=== PATIENT | male | born 1975 | race Caucasian/White ===

== ENCOUNTER 2017-01-18 17:32 | Emergency (ER) | payer MEDICAID, OTHER ==
[~2017-01-18] VITALS: Ht 167.6 cm; Wt 85.7 kg
[~2017-01-18 17:32] MED LIST: CEPH250C16 PO; TAMS0.4C96 PO
[2017-01-18 17:42] VITALS: BP 136/82
[2017-01-18] MEDS ORDERED: NACL 0.9% 500 ML IV ONE (19:19)
[2017-01-18] MEDS ORDERED: ONDANSETRON 4 MG/2 ML VIAL IVP ONE (19:20)
[2017-01-18] MEDS ORDERED: KETOROLAC 30 MG/ML VIAL IVP ONE (19:20)
[2017-01-18 21:07] LABS: BASOPHILS # (AUTO) 0.4 K/uL (0.00-0.22); BASOPHILS % (AUTO) 4.7 % (0.0-2.0); EOSINOPHILS # (AUTO) 0.3 K/uL (0-0.4); HEMATOCRIT 52.2 % (36-52); HEMOGLOBIN 16.9 g/dL (12.0-18.0); LYMPHOCYTES # (AUTO) 2.7 K/uL (2.0-11.5); LYMPHOCYTES % (AUTO) 32.7 % (20.5-51.1); MEAN CORPUSCULAR HEMOGLOBIN 30 pg (27-31); MEAN CORPUSCULAR HGB CONC 32 g/dL (33-37); MEAN CORPUSCULAR VOLUME 93 fL (80-94); MONOCYTES % (AUTO) 12.6 % (1.7-9.3); NEUTROPHILS # (AUTO) 3.8 K/uL (1.8-7.7); PLATELET COUNT (AUTO) 357 K/uL (140-450); RED BLOOD CELL COUNT(AUTO) 5.61 MIL/uL (4.20-6.10); RED CELL DISTRIBUTION WIDTH 13.5 % (11.6-13.7); WHITE BLOOD COUNT (AUTO) 8.2 K/uL (4.8-10.8)
[2017-01-18 21:22] LABS: ALBUMIN 3.8 g/dL (3.4-5.0); CARBON DIOXIDE 24.8 mmol/L (21-32); POTASSIUM 3.8 mmol/L (3.5-5.1); TOTAL BILIRUBIN 0.5 mg/dL (0.0-1.0)
[2017-01-18 22:13] VITALS: BP 125/81
== END 2017-01-18 22:13 | disposition home or self-care (01) ==
LOC: MED 17:32
DX: K76.0 Fatty (change of) liver, not elsewhere classified (principal); R03.0 Elevated blood-pressure reading, without diagnosis of hypertension; E78.00 Pure hypercholesterolemia, unspecified
CPT/HCPCS: 36415; 71010; 76705; 80053; 83690; 85025; 96361; 96374; 96375; 99285; J1885; J2405; J7030; Q0092

== ENCOUNTER 2018-09-22 06:28 | Emergency (ER) | payer OTHER ==
[~2018-09-22] VITALS: Ht 165.1 cm; Wt 95.3 kg
[2018-09-22 06:34] VITALS: BP 141/78
--- NOTE | 2018-09-22 06:34 | NUR ---
PT TAKEN TO BED 8
--- NOTE | 2018-09-22 06:35 | NUR ---
PT BIB SELF C/O BLOOD IN STOOL AND RIGHT FLANK PAIN. PT STATES BM X1 HOUR AGO W/ PRESENTS OF BLOOD IN TOILET AND W/ WIPING; RIGHT SIDED FLANK PAIN TENDER TO TOUCH W/ NO SIGNS OF TRAUMA OR INJURY; NO ACTIVE BLEEDING FROM RECTUM AT THIS TIME; PT STATES 3/10 ABD PAIN. DENIES N/V/D. BREATHING EQUAL AND UNLABORED. PT ACTING APPROPRIATLY SPEAKING IN CLEAR AND COMPLETE SENTENCES. PT IN GOWN, IN BED; BED IN LOWER LOCKED POSITION. PENDING ERMD TROYAL. PMH: DENIES URINE SAMPLE AT BEDSIDE.
--- NOTE | 2018-09-22 07:15 | NUR ---
Dr. Limon evaluating patient at bedside.
--- NOTE | 2018-09-22 07:21 | NUR ---
Bedside report provided to BERNADETTE Plummer. Transfer of care at this time.
[2018-09-22] MEDS ORDERED: KETOROLAC 15 MG/ML VIAL IVP ONE (07:25)
[2018-09-22 08:03] LABS: EOSINOPHILS # (AUTO) 0.2 K/uL (0-0.4); MONOCYTES # (AUTO) 0.6 K/uL (0.8-1.0); NEUTROPHILS # (AUTO) 4.1 K/uL (1.8-7.7); RED BLOOD CELL COUNT(AUTO) 5.41 MIL/uL (4.20-6.10)
[2018-09-22 08:11] LABS: BASOPHILS % (AUTO) 0.5 % (0.0-2.0); EOSINOPHILS % (AUTO) 2.3 % (0.0-4.0); HEMATOCRIT 49.9 % (36-52); HEMOGLOBIN 17.1 g/dL (12.0-18.0); LYMPHOCYTES % (AUTO) 29.1 % (20.5-51.1); MEAN CORPUSCULAR HEMOGLOBIN 32 pg (27-31); MEAN CORPUSCULAR HGB CONC 34 g/dL (33-37); MEAN CORPUSCULAR VOLUME 92.1 fL (80-94); MONOCYTES % (AUTO) 9.2 % (1.7-9.3); NEUTROPHILS % (AUTO) 58.9 % (42.2-75.2); PLATELET COUNT (AUTO) 352 K/uL (140-450); RED CELL DISTRIBUTION WIDTH 14.2 % (11.6-13.7); WHITE BLOOD COUNT (AUTO) 6.9 K/uL (4.8-10.8)
[2018-09-22 08:16] LABS: APPEARANCE,URINE CLEAR (CLEAR); BILIRUBIN,URINE NEGATIVE (NEGATIVE); BLOOD, URINE NEGATIVE (NEGATIVE); COLOR,URINE YELLOW (YELLOW); LEUKOCYTE ESTERASE ,URINE NEGATIVE (NEGATIVE); NITRITE, URINE NEGATIVE (NEGATIVE); UGLUCOSE NEGATIVE (NEGATIVE)
[2018-09-22 08:20] LABS: ALBUMIN 3.8 g/dL (3.4-5.0); ANION GAP 10.7 (8-16); CARBON DIOXIDE 26.4 mmol/L (21-32); CREATININE 0.8 mg/dL (0.7-1.3); POTASSIUM 4.1 mmol/L (3.5-5.1); TOTAL BILIRUBIN 0.4 mg/dL (0.0-1.0)
--- NOTE | 2018-09-22 08:43 | NUR ---
PATIENT TAKEN FOR CT SCAN VIA WHEELCHAIR AT THIS TIME.
--- NOTE | 2018-09-22 09:20 | NUR ---
Patient being evaluated by DR ORELLANA at bedside.
[2018-09-22 10:00] VITALS: BP 134/79
--- NOTE | 2018-09-22 10:00 | NUR ---
Patient discharged with v/s stable. Written and verbal after care instructions given and explained. Patient alert, oriented and verbalized understanding of instructions. Ambulatory with steady gait. All questions addressed prior to discharge. ID band removed. Patient advised to follow up with PMD. Rx of NORCO &ZOFRAN given. Patient educated on indication of medication including possible reaction and side effects. Opportunity to ask questions provided and answered.
== END 2018-09-22 10:00 | disposition home or self-care (01) ==
LOC: MED 06:28
DX: R10.11 Right upper quadrant pain (principal); K92.1 Melena; Z79.2 Long term (current) use of antibiotics; Z79.899 Other long term (current) drug therapy
CPT/HCPCS: 36415; 74177; 80053; 81003; 83690; 85025; 96374; 99284; J1885; Q9967

== ENCOUNTER 2019-03-15 16:09 | Emergency (ER) | payer OTHER ==
[~2019-03-15] VITALS: Ht 167.6 cm; Wt 95.3 kg
[2019-03-15 16:24] VITALS: BP 134/81
--- NOTE | 2019-03-15 19:50 | NUR ---
PT AMBULATED TO BED 11
[2019-03-15 19:55] VITALS: BP 134/81
--- NOTE | 2019-03-15 19:55 | NUR ---
43 Y/O M, PRESENTS TO ED WITH COMPLAINTS OF ABDOMINAL PAIN TO THE RIGHT UPPER AND LOWER SIDE. RATES PAIN 7/10. DENIES VOMITING, DIARRHEA, CONSTIPATION BUT COMPLAINS OF NAUSEA. PATIENT TAKES IBUPROFEN TO RELIEVE PAIN BUT ONLY RELIEVES PAIN FOR A SHORT TIME (1 HOUR). ABDOMEN TO THE RIGHT SIDE IS TENDER TO TOUCH, ABDOMEN SOFT AND BOWEL SOUNDS ACTIVE IN ALL QUADRANTS. SIDERAILS UP x1, WILL CONTINUE TO MONITOR.
--- NOTE | 2019-03-15 20:15 | NUR ---
PT WENT TO RAD
--- NOTE | 2019-03-15 20:22 | NUR ---
PT BACK FROM RAD
[2019-03-15] MEDS: KETOROLAC 30 MG/ML VIAL IM ONE (20:34)
[2019-03-15] MEDS: ONDANSETRON 4 MG ODT PO ONE (20:35)
--- NOTE | 2019-03-15 20:53 | NUR ---
Patient discharged with v/s stable. Written and verbal after care instructions given and explained. Patient alert, oriented and verbalized understanding of instructions. Ambulatory with steady gait. All questions addressed prior to discharge. ID band removed. Patient advised to follow up with PMD. Rx of ZOFRAN, MIRALAX, MINERAL OIL given. Patient educated on indication of medication including possible reaction and side effects. Opportunity to ask questions provided and answered.
== END 2019-03-15 20:53 | disposition home or self-care (01) ==
LOC: MED 16:09
DX: R10.9 Unspecified abdominal pain (principal); R11.0 Nausea; Z79.899 Other long term (current) drug therapy
CPT/HCPCS: 74022; 96372; 99283; J1885; Q0162

== ENCOUNTER 2020-11-21 09:45 | Emergency (ER) | payer OTHER ==
[~2020-11-21] VITALS: Ht 170.2 cm; Wt 95.3 kg
[2020-11-21 09:46] VITALS: BP 129/73
--- NOTE | 2020-11-21 09:51 | NUR ---
pt ambulated to bed 03.
--- NOTE | 2020-11-21 09:56 | NUR ---
PT UNABLE TO PROVIDE URINE AT THIS TIME
--- NOTE | 2020-11-21 10:00 | NUR ---
45/M presents to ED with c/o epigastric and back pain. Patient states he has been having intermittent 3/10 epigastric pain radiating to his back for one week. Patient states it started one week ago when "eating a banana" and states he has not found relief. Reports taking Tylenol with mild relief, states he has had 3 episodes of diarrhea and has episodes of nausea. Denies vomiting, dysuira or hematuria. Denies chest pain or burning and shortness of breath.
--- NOTE | 2020-11-21 10:15 | NUR ---
Labs collected bedside and walked to lab.
[2020-11-21 10:18] LABS: BASOPHILS # (AUTO) 0.1 K/uL (0.00-0.22); BASOPHILS % (AUTO) 1.1 % (0.0-2.0); EOSINOPHILS # (AUTO) 0.2 K/uL (0-0.4); HEMATOCRIT 51.8 % (36-52); HEMOGLOBIN 17.6 g/dL (12.0-18.0); LYMPHOCYTES # (AUTO) 2.1 K/uL (2.0-11.5); LYMPHOCYTES % (AUTO) 31.8 % (20.5-51.1); MEAN CORPUSCULAR HEMOGLOBIN 32 pg (27-31); MEAN CORPUSCULAR HGB CONC 34 g/dL (33-37); MEAN CORPUSCULAR VOLUME 93.7 fL (80-94); MONOCYTES # (AUTO) 0.6 K/uL (0.8-1.0); MONOCYTES % (AUTO) 9.2 % (1.7-9.3); NEUTROPHILS # (AUTO) 3.6 K/uL (1.8-7.7); NEUTROPHILS % (AUTO) 54.9 % (42.2-75.2); PLATELET COUNT (AUTO) 341 K/uL (140-450); RED BLOOD CELL COUNT(AUTO) 5.53 MIL/uL (4.20-6.10); WHITE BLOOD COUNT (AUTO) 6.5 K/uL (4.8-10.8)
[2020-11-21 10:30] LABS: ALBUMIN 3.8 g/dL (3.4-5.0); CARBON DIOXIDE 23.8 mmol/L (21-32); CREATININE 0.8 mg/dL (0.6-1.3); POTASSIUM 3.8 mmol/L (3.5-5.1); TOTAL BILIRUBIN 0.6 mg/dL (0.0-1.0)
[2020-11-21] MEDS ORDERED: ALUMINUM HYD/MAG/SIMETHICONE 30 ML UDC PO ONE (10:40)
[2020-11-21] MEDS ORDERED: DICYCLOMINE HCL LIQUID 20 MG, ALUMINUM HYD/MAG/SIMETHICONE 30 ML, LIDOCAINE VISCOUS 2% ... PO ONE ×3 (11:30)
[2020-11-21] MEDS ORDERED: FAMOTIDINE 20 MG TAB PO ONE (11:30)
[2020-11-21] MEDS ORDERED: ALUMINUM HYD/MAG/SIMETHICONE 30 ML UDC ONE (11:36)
[2020-11-21] MEDS ORDERED: DICYCLOMINE HCL LIQUID 10 MG/5 ML UDC ONE (11:36)
[2020-11-21] MEDS ORDERED: FAMO-92 PO ×2 (12:43→12:55)
[2020-11-21 12:57] VITALS: BP 127/72
== END 2020-11-21 12:55 | disposition home or self-care (01) ==
LOC: MED 09:45
DX: R10.13 Epigastric pain (principal); E66.9 Obesity, unspecified; Z68.32 Body mass index [BMI] 32.0-32.9, adult
CPT/HCPCS: 36415; 80053; 81002; 83690; 85025; 93005; 99284

== ENCOUNTER 2021-01-09 12:49 | Emergency (ER) | payer OTHER ==
[~2021-01-09] VITALS: Ht 160 cm; Wt 93.9 kg
[~2021-01-09 12:49] MED LIST changes: +FAMO-92 PO
[2021-01-09 12:56] VITALS: BP 120/72
--- NOTE | 2021-01-09 13:04 | NUR ---
P AMBULATED TO ER BED 4 WITH A STEADY GAIT.
--- NOTE | 2021-01-09 13:14 | NUR ---
45 Y/O MALE C/O LEFT EYE PAIN 10/04 DESCRIBES SHARP RADIATES TO LEFT SIDE OF HEAD X1DAY. PT DENIES TRAUMA/INJURY. PT STATES BLURRY VISION, NOTED REDNESS TO LEFT EYE. DENIES ITCHING, DENIES DISHCARGE. PT STATES HE APPLIED EYE DROPS PRIOR TO ARRIVAL WITH NO RELIEF. DENIES N/V, DENIES FEVER/CHILLS. DENIES PMH ALLRGIES: CHAYAN
[2021-01-09] MEDS: FLUORESCEIN OPTH STRIP 1 MG OP ONE (13:46)
[2021-01-09] MEDS: TETRACAINE HCL/PF 0.5% OPTH 4 ML BTL OP ONE (13:47)
--- NOTE | 2021-01-09 14:46 | NUR ---
DR. ASHLEY AT PT BEDSIDE FOR PROCEDURE.
[2021-01-09] MEDS ORDERED: TOBR5SOL17 LEFT EYE (14:54)
[2021-01-09] MEDS ORDERED: NAPR-54 PO (14:54)
[2021-01-09 15:15] VITALS: BP 118/74
--- NOTE | 2021-01-09 15:15 | NUR ---
Patient discharged with v/s stable. Written and verbal after care instructions given FOREIGN BODY IN EYEand explained. Patient alert, oriented and verbalized understanding of instructions. Ambulatory with steady gait. All questions addressed prior to discharge. ID band removed. Patient advised to follow up with PMD. Rx of NAPROXEN AND TROBAMYCIN given. Patient educated on indication of medication including possible reaction and side effects. Opportunity to ask questions provided and answered.
== END 2021-01-09 15:15 | disposition home or self-care (01) ==
LOC: MED 12:49
DX: T15.92XA Foreign body on external eye, part unspecified, left eye, initial encounter (principal); Z88.0 Allergy status to penicillin; X58.XXXA Exposure to other specified factors, initial encounter; Y93.89 Activity, other specified; Y92.89 Other specified places as the place of occurrence of the external cause; Y99.8 Other external cause status
CPT/HCPCS: 99284

== ENCOUNTER 2023-04-25 14:12 | Emergency (ER) | payer OTHER ==
[~2023-04-25] VITALS: Ht 167.6 cm; Wt 81.6 kg
[~2023-04-25 14:12] MED LIST changes: +NAPR-54 PO; +TOBR5SOL38 LEFT EYE
[2023-04-25 14:32] VITALS: BP 121/72; PULSE 83; RESP 20; TEMP 97.8; O2SAT 98
[2023-04-25] MEDS ORDERED: CLIN300C2 PO (15:04)
[2023-04-25] MEDS ORDERED: ERYT5OIN51 OP (15:04)
== END 2023-04-25 15:39 | disposition home or self-care (01) ==
LOC: MED 14:12
DX: H00.034 Abscess of left upper eyelid (principal); H00.014 Hordeolum externum left upper eyelid; Z79.899 Other long term (current) drug therapy
CPT/HCPCS: 99283